=== PATIENT | male | born 1965 | race Caucasian/White ===

== ENCOUNTER 2022-01-01 21:08 | Emergency (ER) | payer MEDICAID ==
[2022-01-01] MEDS ORDERED: Acetaminophen/oxyCODONE 325-5 MG Tab PO STA (22:32)
[2022-01-01] MEDS ORDERED: Cyclobenzaprine 10 MG Tab PO STA (22:32)
[2022-01-01] MEDS ORDERED: Ketorolac 30 MG/ML SDV IM STA (22:32)
[2022-01-01] MEDS ORDERED: Ondansetron 4 MG Tab.DIS PO STA (22:32)
== END 2022-01-02 06:00 | disposition home or self-care (01) ==
LOC: FB.ED 21:08
DX: G89.29 Other chronic pain (principal); M54.50 Low back pain, unspecified; Z72.0 Tobacco use
CPT/HCPCS: 96372; 99283; A9270-GY; J1885; Q0162